=== PATIENT | female | born 1935 | race Caucasian/White ===

== ENCOUNTER → 2016-08-16 | Outpatient (CLI) | payer MEDICARE, OTHER ==
--- NOTE | 2016-08-16 09:23 | BD ---
EXAMINATION TYPE: MG DEXA axial skeleton. DATE OF EXAM: 08/16/2016 8:44 AM COMPARISON: 12.22.2013 CLINICAL HISTORY: Z13.820, V82.81 ENCOUNTER OF SCREENING FOR OSTEOPOROSIS Height: 58 Weight: 98 FRAX RISK QUESTIONS: Alcohol (3 or more units per day): NO Family History (Parent hip fracture): UNSURE Glucocorticoids (More than 3mos): NO (Ex: prednisone, prednisolone, methylprednisolone, dexamethasone, and hydrocortisone). History of Fracture in Adulthood: YES Secondary Osteoporosis: 1. Type 1 Diabetes: NO 2. Hyperthyroidism: NO 3. Menopause before 45: UNKNOWN 4. Malnutrition: YES, DRINKS ENSURE DAILY 5. Chronic liver disease: NO Rheumatoid Arthritis: NO Current Tobacco Use: NO RISK FACTORS VERY POOR HISTORIAN... 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 FOR FEW YRS Family History of Osteoporosis: UNKNOWN Smoke tobacco: NO Drink Alcohol: NO Active: NO Diet low in dairy products/other sources of calcium: NO Postmenopausal woman: UNSURE Lost more than 2 inches in height since high school: YES Frequent falls: UNSTEADY, IN WHEELCHAIR Poor Health: YES Adrenal Insufficiency: NO MEDICATIONS: Prednisone or other steroids: NO Additional Medications: CLONAZEPAM, FUROSEMIDE, RISPERIDONE, SERTRALINE, LOSARTAN, NAPROSYN, FOMATIDI NE, ASPIRIN, Additional History: CURVATURE TO BACK, IN WHEELCHAIR, FRAIL, OSTEOARTHRITIS, DEPRESSION, SEIZURES EXAM MEASUREMENTS: Bone mineral densitometry was performed using the [employer] System. Bone mineral density as measured about the Lumbar spine is: ----- L1-L4(G/cm2): 1.016 T Score Values are as follows: ----- L1: -1.5 ----- L2: -1.7 ----- L3: -1.0 ----- L4: -1.5 ----- L1-L4: -1.4 Bone mineral density has: Decreased -0.9% since study of: 12.22.2013 Bone mineral density about the R hip (g/cm2): 0.814 Bone mineral density about the L hip (g/cm2): 0.848 T Score values are as follows: -----R Neck: -1.4 -----L Neck: -1.6 -----R Intertrochanter: -1.9 -----L Intertrochanter: -1.2 Bone mineral density has: Decreased -4.5% since study of: 12.22.2013 FRAX%'S: FOR MAJOR OSTEOPOROTIC FX: 12.2%.....FOR HIP FX: 3.1% PROBABILITY OF FX IN 10 YRS TIME IMPRESSION: Osteopenia (T Score between -2.5 and -1 as noted by T score values There is slightly increased risk of fracture and the patient may be considered for treatment. Re-Screen 1-2 years. FOR BOTH SCANS SPINE AND BOTH HIPS NOTE: T-SCORE=SD OF THE YOUNG ADULT MEAN.
== END | disposition home or self-care (01) ==
LOC: EEVIPCON 07:55 → RADBDWWP 07:55
PROVIDERS: ATTEND Family Medicine
DX: Z13.820 Encounter for screening for osteoporosis (principal); M85.80 Other specified disorders of bone density and structure, unspecified site
CPT/HCPCS: 77080